=== PATIENT | female | born 1995 | race Two or more races ===

== ENCOUNTER 2017-11-19 10:16 | Inpatient (IN) | payer OTHER ==
[2017-11-19] MEDS ORDERED: Haloperidol TAB* 5 MG PO ONE (10:51)
[2017-11-19] MEDS ORDERED: diPHENhydraMINE PO* 50 MG PO ONE (10:51)
--- NOTE | 2017-11-19 10:58 | ED ---
Psychiatric Complaint - HPI Summary HPI Summary: Pt [address] [facility] police for reports of "not acting right" over at [employer]. Here w/ agitation, flight of ideas and appears to be looking around the room when talking as though she 's distracted. Reports she is hearing voices but they are not telling her to hurt herself or anyone else. Report she had sex for the first time last night with her boyfriend, Jun. Later refers to him as her . Reports this was consensual but was more painful that she thought it would be. States he was very sweet and she's spoken to him since - he's at home working now. When asked if I could have his phone number, she reports "it's right here" and points to her wrist band. 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 From a country outside of [facility] near [facility]. No family members are here other than her partner. Reports she's on her period now and has some lower ab cramping as a result. She is not clear about past medical or mental health hx - not clear if she's taken anything today or recently. Making comments about "[employer] - if you play it backwards, it 's different" and touching lights on the wall while speaking - appears distracted. Lunging at me at times but does not appear malicious. Pressured speech at times and repeats herself occasionally. Requesting her shoes back nad wants to go home. Asks if she can take her clothes off and reaches for her pants but advised she does not need to disrobe this moment - pulls belt off anyway but does not remove pants. Returns to pacing around the room. Belt removed from room and at charge nurse desk. - History Of Current Complaint Time Seen by Provider: 11/19/17 10:37 Hx Obtained From: Patient - Allergies/Home Medications Allergies/Adverse Reactions: Allergies Allergy/AdvReac Type Severity Reaction Status Date / Time No Known Allergies Allergy Verified 11/19/17 11:13 Home Medications: Home Medications Unobtainable [Unobtainable] 11/19/17 [History Confirmed 11/19/17] PMH/Surg Hx/FS Hx/Imm Hx Previously Healthy: Yes - pt reports she is healthy, but unreliable source given current psychosis - Immunization History Immunizations Up to Date: Unable to Obtain/Confirm Infectious Disease History: Unable to Obtain/Confirm - Family History Known Family History: Positive: Unknown - pt unable to provide at this time - Social History Occupation: Student - "[employer]" Lives: With Family - "I live with my Jun" Alcohol Use: None Alcohol Amount: pt unable to provide at this time Substance Use Type: Reports: None Substance Use Comment - Amount & Last Used: denies currently, but pt unable to provide reliable info at this time Smoking Status (MU): Unknown if Ever Smoked Review of Systems - ROS Summary Review of Systems Summary: Level 5 caveat - psychosis Gastrointestinal: Other - "period cramps" - tolerable Genitourinary: Other - reports she had 1st intercourse last night - no physical complaints -see HPI Psychological: Other - psychotic All Other Systems Reviewed And Are Negative: Yes Physical Exam Triage Information Reviewed: Yes Vital Signs Reviewed: Yes Appearance: Positive: Well-Appearing - physically appears well - mentally, unstable, Well-Nourished Skin: Positive: Warm, Skin Color Reflects Adequate Perfusion, Dry Head/Face: Positive: Normal Head/Face Inspection Eyes: Positive: EOMI, Conjunctiva Clear ENT: Positive: Hearing grossly normal, Pharynx normal - mucosa moist Neck: Positive: Supple - no gross thryomegaly Respiratory/Lung Sounds: Positive: Breath Sounds Present. Negative: Stridor Cardiovascular: Positive: Normal Musculoskeletal: Positive: Normal, Strength/ROM Intact Neurological: Positive: Normal, Sensory/Motor Intact, CN Intact II-III. Negative: Alert, Oriented to Person Place, Time Psychiatric: Positive: Other - manic - energetic, can't sit - pacing around room - appears to be visually distracted during conversation; flight of ideas - tangential thinking - attempts to hug multiple staff members - does not appear malicious w/ her intentions Diagnostics - Laboratory Result Diagrams: 11/19/17 11:20 11/19/17 11:20 Lab Statement: Any lab studies that have been ordered have been reviewed, and results considered in the medical decision making process. Course/Dx - Course Course Of Treatment: Pt presents w/ psychotic features. Initially offered haldol PO and benadryl PO as she was cooperative. She was becoming increasingly agitated however and anxious despite PO meds so ativan IM was offered to help her relax. She is pending lab draw and urinalysis/tox screen. Update: labs complete - still pending tox screen. Pt was taken to [facility] and evaluated. No communication about care from there but appears she was admitted to [facility] here in [facility]. - Differential Dx/Clinical Impression Provider Diagnosis: Acute psychosis Discharge - Discharge Plan Condition: Guarded Disposition: ADMITT[facility] TO [facility]
[2017-11-19] MEDS ORDERED: LORazepam INJ* 2 MG/ML 1 ML VIAL IM ONE (11:28)
[2017-11-19 11:40] LABS: ABS Basophils 0 10^3/ul (0-0.2); ABS Eosinophils 0 10^3/ul (0-0.6); ABS Lymphocytes 1.5 10^3/ul (1.0-4.8); ABS Monocytes 0.8 10^3/ul (0-0.8); ABS Neutrophils 5.5 10^3/ul (1.5-7.7); ABS Nucleated RBC 0 10^3/ul; Eosinophil % 0.3 % (0-6); Hematocrit 38 % (35-47); Lymphocyte % 19.2 % (25-47); Mean Corpuscular HGB Conc 34 g/dl (31-36); Mean Corpuscular Hemoglobin 32 pg (27-31); Mean Corpuscular Volume 93 fL (80-97); Mean Platelet Volume 8 um3 (7.4-10.4); Nucleated Red Blood Cells % 0.1; Platelet Count 324 10^3/ul (150-450); Red Blood Count 4.09 10^6/ul (4.0-5.4); Red Cell Distribution Width 13 % (10.5-15); White Blood Count 7.9 10^3/ul (3.5-10.8)
[2017-11-19 11:52] LABS: EGFR Non-African American 90.1 (>60)
[2017-11-19] MEDS ORDERED: Al Hydrox/Mg Hydrox/Simet LIQ* 30 ML UDC PO PRN (15:03)
[2017-11-19] MEDS ORDERED: Acetaminophen TAB* 325 MG PO PRN (15:03)
[2017-11-19] MEDS ORDERED: Haloperidol TAB* 1 MG PO PRN (15:04)
[2017-11-19] MEDS ORDERED: LORazepam TAB(*) 1 MG PO PRN (15:04)
[2017-11-20 17:07] LABS: Urine Appearance Clear; Urine Blood Negative (Negative); Urine Color Yellow; Urine Ketones Negative (Negative); Urine Protein Negative (Negative); Urine Specific Gravity 1.014 (1.010-1.030); Urine Urobilinogen Negative (Negative)
--- NOTE | 2017-11-20 19:50 | HP ---
HISTORY AND PHYSICAL: DATE OF ADMISSION: 11/19/17 ATTENDING PROVIDER: Georgi Rico MD * (DICTATED BY OSTIO AGUILAR NP) JUSTIFICATION FOR ADMISSION: The patient presented to the emergency department via EMS in . The patient was previously at [facility] and reported to have psychotic features. She merits hospitalization for immediate safety, evaluation, and stabilization. 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 She lives with friends in an apartment off campus. She returned to [place] recently after spending the break in [place] with her parents. According to the mental health evaluation , the patient was brought to [facility] when her roommates/friends were concerned about her behavior. While in the emergency department, the patient was demonstrating mood lability, racing thoughts, agitation, and flight of ideas. She was disorganized, tangential, and required sedative medications. Staff was unable to obtain urine specimen due to the patient being incontinent on the bed and then on the floor 2 separate occasions. This morning the patient reports that she is concerned about starting classes and wants to be able to do so this week. She states that she has a history of mild anxiety. She states that in elementary school it was "crippling" but that has improved since starting college and she attributes this to being away from her parents. She states that she primarily brandon with anxiety by smoking marijuana and goes on to question herself in regards to being addicted to marijuana. She states that she uses "a little bit." She later admits to smoking at least twice daily including when she wakes. The patient reports she did not smoke while at home in [facility] over the break because she was around her parents. The patient states that she often hears "buzzing" in her head and goes on to describe internal commentary. The patient denies anhedonia. She denies suicidal ideation. She states that she is motivated and driven when it comes to writing in her school work. She states that she is "constantly telling herself things are wrong" and tends to repeat her work over and over. When we start discussing her classes, she is tearful and states that she is concerned about being accepted to a study abroad program in [place]. She is not sure if her GPA will be adequate. The patient states she started seeing a counsellor last fall and sees a private one in town by the name of Dr. Zahira Espinosa. She states that she was prompted to do so because her best friend started seeing a counsellor and appreciated the help her friend was getting. The patient states she primarily went to "talk to someone." She goes on to describe frustration with not being in a relationship. She states that she is spending time with a man named Jun and wants to ask if they are dating, but is afraid of chasing him away. The patient denies self-injurious behavior. She denies a history of suicide attempts. She denies history of violence or HI. She states that in middle school she "tried to be bulimic and anorexic, but liked food too much." The patient denies obsessions or rituals. She denies delusions or depersonalization. PAST PSYCHIATRIC HISTORY: The patient started going to a counsellor. I am not sure who this person is, so this will have to be explored more. According to the mental health evaluation, the patient saw a counsellor at [facility] once before the winter and saw a therapist yesterday before being sent to the emergency department. The patient denies previous inpatient treatment. She was in the emergency department in June 2016 for alcohol intoxication. Otherwise, there are no other mental health evaluations. TRAUMA ABUSE HISTORY: The patient denies. PAST MEDICAL HISTORY: The patient denies. PAST SURGICAL HISTORY: No surgical history. CURRENT MEDICATIONS: The patient denies current medications. ALLERGIES: No known drug allergies. Height 5 feet and 6 inches, weight 150 pounds. She states that she has been exercising more and losing weight in a healthy manner by monitoring diet and increasing exercise. LAST MENSTRUAL PERIOD: 11/13/17. PRIMARY CARE PROVIDER: [facility]. She states she has been sexually active and using condoms. The patient denies need for test for STI's as she was tested and not been sexually active since that time. FAMILY PSYCHIATRIC HISTORY: The patient denies. She states that specifically her father is not agreeable with mental health treatment or diagnosis. SOCIAL HISTORY: The patient is the only child by parents. Her mother is Maltese. Her father is from [place]. As stated above, she is a [employer] sophomore returning from winter break. She states that she studies architecture. 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 She likes to exercise, run . She reports drinking alcohol occasionally, 3 to 4 drinks at a time. She does not like being intoxicated, does not like the feeling of being out of control. She reports smoking cigarettes rarely. She denies need for nicotine replacement. The patient is a daily marijuana user while away from home. PRIMARY CARE PROVIDER: At [facility]. REVIEW OF SYSTEMS: Constitutional: Negative. No fevers, chills, or fatigue. ENT: Negative. Cardiovascular: Negative. Denies chest pain or palpitations. Respiratory: Negative. Denies shortness of breath or cough. Genitourinary: Negative. Musculoskeletal: Negative. Neurological: Negative. PHYSICAL EXAMINATION GENERAL: The patient is well appearing and well nourished. VITAL SIGNS: T 98.3, P 67, respirations 18, O2 saturation 100%, BP 118/74. HEENT: Head and Face: Normal head and face inspection. Eyes: Positive EOMI. PERRL. Conjunctivae clear. NECK: Supple. Full ROM. Trachea midline. RESPIRATORY: Lung sounds clear to auscultation. Breath sounds present. CARDIOVASCULAR: Heart RRR. Pulses are symmetrical in both upper and lower extremities. MUSCULOSKELETAL: Normal strength. ROM intact. NEUROLOGIC: Normal sensory, motor intact. Alert and oriented x3. Normal gait. SKIN: Warm and dry. Color reflects adequate perfusion. MENTAL STATUS EXAM: The patient is dressed in her own clothing. Her hair is up in a messy bun. She appears stated age. She sits with slouched posture facing interviewer. There is no psychomotor abnormal activity present. She is cooperative and answers questions fully. She is alert and oriented x3. Her concentration is fair. Memory is 3/3. Her mood is "great," exhibits full range of affect, congruent with topic. Speech rapid at times, otherwise normal rhythm and volume. Thought process is circumstantial in regards to relationship with a friend named Jun. Content of thought: Negative SI, HI, or . Questionable AH. Her insight is poor. Her judgment is poor. Her fund of knowledge is excellent. LABORATORY DATA: Laboratory data obtained in the emergency department. CBC was grossly unremarkable. CMP within normal limits. TSH 1.35 and hCG is negative. Toxicology negative for salicylates, acetaminophen, or alcohol. I have ordered another urinalysis and urine drug screen and awaiting the collection of urine sample. DIAGNOSES: 1. Substance-induced psychotic disorder. 2. Rule out mood disorder. 3. Cannabis use disorder. ASSESSMENT: This is the first psychiatric hospitalization for a 22-year-old Maltese- female. 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 She presented to [facility] yesterday with flight of ideas, agitation, and internal stimuli. She required sedative medications while in the emergency department. She reports having had started counseling in the past fall with someone named Dr. Zahira Espinosa, apparently a private therapist here in [place]. PLAN: Admit to adult behavioral services unit on 9.39 status. Code status is full. Placed on 15 minutes check for safety. The patient is encouraged to participate in supportive milieu, individual sessions with staff and psychoeducational groups. We will obtain an MMPI for diagnostic clarification. Psychiatric medications are available on a p.r.n. basis. We will monitor for mood and thought content. Estimated length of stay is 1 week. Discharge plan will include family involvement and outpatient providers per the patient consent. OSITO AGUILAR NP [id number]/CPS #: [id number] LOULOU
--- NOTE | 2017-11-21 11:02 | PN ---
Subjective - Subjective Date of Service: 11/21/17 Service Type: 70970 Hosp care 15 min low complexity Subjective: Katarzyna is seen in coverage for NPP, Bonita Tapia. The patient feels more like herself today and is denying psychotic symptoms. Staff notes that she is becoming more active on the unit. Patient states that she spoke with her mother yesterday in [facility] and that it went well. She appears strongly motivated to discontinue use of cannabis. She denies SI or HI. Objective - Appearance Appearance: Well Developed/Nourished Dysmorphic Features: No Hygiene: Normal Grooming: Well Kept - Behavior Psychomotor Activities: Normal Exhibits Abnormal Movement: No - Attitude and Relatedness Attitude and Relatedness: Cooperative Eye Contact: Good - Speech Quality: Unpressured Latencies: Normal Quantity: Appropriate - Mood Patient's Decription of Mood: "Good" - Affect Observed Affect: Fair Affect Consistent with: Euthymia - Thought Process Patient's Thought Process: Coherent Thought Content: No Passive Wish, No Suicidal Planning, No Homicidal Ideation, No Paranoid Ideation - Sensorium Experiencing Hallucinations: No, Sensorium is Clear Type of Hallucinations: Visual: No, Auditory: No, Command: No - Level of Consciousness Level of Consciousness: Alert Orientation: Yes Intact, Yes Orientated to Time, Yes Orientated to Place, Yes Orientated to Person - Impulse Control Impulse Control: Tenuous - Insight and Judgement Insight and Judgement: Fair - Group Participation Particating in Group Activities: Yes - Medication Management Medication Management Adherence: Yes Assessment - Assessment Merits Inpatient Hospitalization: Consolidate Improvements, Pending Safe DC Plan Inpatient DSM-IV Dx: Cannabis Induced Psychotic DO Clinical Impression: 22 y.o. 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 Likely substance- induced as she has been smoking much MJ since returning to [employer] after break. Plan - Plan Treatment Plan: Name: KATARZYNA MAYFIELD Birthdate: 1995 [id number] Conservative management with milieu therapy and prn antipsychotic administration for breakthrough psychotic symptoms. Patient contemplative to discontinue cannabis abuse. Continue inpatient treatment. Continued Medication Management: Consider Medication Medications: Current Medications Acetaminophen (Tylenol Tab*) 650 mg PO Q4H PRN PRN Reason: for pain; or Temp >101 F Al Hydrox/Mg Hydrox/Simethicone (Maalox Plus*) 30 ml PO Q4H PRN PRN Reason: INDIGESTION Haloperidol (Haldol Tab*) 1 mg PO Q6H PRN PRN Reason: AGITATION Lorazepam (Ativan Tab(*)) 1 mg PO Q6H PRN PRN Reason: ANXIETY Last Admin: 11/21/17 09:26 Dose: 1 mg - Discharge Plan Discharge Plan: Inpatient Hospitalization
--- NOTE | 2017-11-21 11:36 | PN ---
MHU: Group Therapy Note - Service Type Service Type: [id number] Group Psychotherapy - Cognitive Behavioral Group Therapy ( CBT):Patient was attentive and participatory in CBT programming this morning, and remained in good behavioral control. Patient expressed positive insights regarding relevant treatment interventions and goals.
--- NOTE | 2017-11-22 16:27 | PN ---
Subjective - Subjective Service Type: 84342 Hosp care 25 min moderate complexity Subjective: Patient reports "I'm doing really well." She attributes her recent mental state to being inundated by internet ads and social media. She states she has been "studying too much" about virtual reality and simulation. She states she is identifying changes she wants to make to improve her life. She states she and her roommates have talked about refraining from marijuana use. She states she has engaged in casual sex and realized that she is not able to do this and separate it from emotions. She plans to meet with academic advisors to make plans for studying, jobs and internships. She gives contract technical writer consent to speak with her mother and asks that I refrain from discussing marijuana use. Desktop Manager encourages her to discuss honestly with her mother when she is ready to do so. Desktop Manager phones patient's mother, Sushma at [phone], and given update on patient's presentation and improvement. Sushma states she was alarmed by patient' s rapid speech, distractibility and disorganization on the first day of admission. She states they spoke last night and had a pleasant and lengthy conversation. She states that Katarzyna was organized and in control during this conversation. Desktop Manager encouraged mother to discuss events leading to admission with her daughter. Encouraged Sushma to call again with further questions or concerns. Objective - Appearance Appearance: Well Developed/Nourished Dysmorphic Features: No Hygiene: Normal Grooming: Well Kept - Behavior Psychomotor Activities: Normal Exhibits Abnormal Movement: No - Attitude and Relatedness Attitude and Relatedness: Cooperative Eye Contact: Good - Speech Quality: Unpressured Latencies: Normal Quantity: Appropriate - Mood Patient's Decription of Mood: "really well" - Affect Observed Affect: Good Affect Consistent with: Euthymia - Thought Process Patient's Thought Process: Coherent, Goal Directed Thought Content: No Passive Wish, No Suicidal Planning, No Homicidal Ideation, No Paranoid Ideation - Sensorium Experiencing Hallucinations: No, Sensorium is Clear Type of Hallucinations: Visual: No, Auditory: No, Command: No - Level of Consciousness Level of Consciousness: Alert Orientation: Yes Intact, Yes Orientated to Time, Yes Orientated to Place, Yes Orientated to Person - Impulse Control Impulse Control: Intact - Insight and Judgement Insight and Judgement: Good - Group Participation Particating in Group Activities: Yes - Medication Management Medication Management Adherence: Yes Assessment - Assessment Merits Inpatient Hospitalization: For Immediate Safety, For Stabilization, Consolidate Improvements, For Discharge Planning Inpatient DSM-IV Dx: Cannabis Induced Psychotic DO Plan - Plan Treatment Plan: Name: KATARZYNA MAYFIELD Birthdate: 1995 [id number] continue acute intensive psychiatric treatment. awaiting MMPI results. may decrease to q30min observation and allow staff pass and computer use. tentative discharge on 11/23/17. Continued Medication Management: Consider Medication Medications: Current Medications Acetaminophen (Tylenol Tab*) 650 mg PO Q4H PRN PRN Reason: for pain; or Temp >101 F Al Hydrox/Mg Hydrox/Simethicone (Maalox Plus*) 30 ml PO Q4H PRN PRN Reason: INDIGESTION Haloperidol (Haldol Tab*) 1 mg PO Q6H PRN PRN Reason: AGITATION Lorazepam (Ativan Tab(*)) 1 mg PO Q6H PRN PRN Reason: ANXIETY Last Admin: 11/21/17 09:26 Dose: 1 mg - Discharge Plan Discharge Plan: Outpatient Follow Up Outpatient Program: Counseling[facility] Services at [place]
[2017-11-23 08:30] VITALS: BP 100/56
--- NOTE | 2017-11-23 11:58 | PN ---
MHU: Group Therapy Note - Service Type Service Type: [id number] Group Psychotherapy - Cognitive Behavioral Group Therapy ( CBT):Patient was attentive and participatory in CBT programming this morning, and remained in good behavioral control. Patient expressed positive insights regarding relevant treatment interventions and goals.
--- NOTE | 2017-11-23 19:34 | CONS ---
PSYCHOLOGICAL REPORT: DATE OF CONSULT: 11/23/17 REASON FOR REFERRAL: Mel was referred for psychological testing secondary to concerns regarding psychotic presentation and/or possible bipolar disturbance. 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 She was brought to the emergency department by friends of her's , who were concerned about recent behavior and conduct. Apparently, Mel had experienced decompensation after traveling from [facility] to be with her family during the break. She describes period of insomnia and not eating properly during the travel time and then exacerbating her difficulties with recurrent marijuana use. While she was in the emergency department, Mle demonstrated difficulties with disorganization in thought and behavior, exhibiting racing thoughts, agitation, flight of ideas, and mood swings. She was disorganized to the point of having been incontinent on the bed and then on the floor on 2 separate occasions. Mel describes rather strict upbringing while spending her high school years in [place] [facility] and then experiencing positive reaction to her move to [place]. She described how she was able to make her own decisions regarding enjoying life without such restrictions that were in place especially for girls in [facility]. She subsequently describes some concerns regarding promiscuity and drug use stating that she was "making up for lost time." Currently, she impresses as having positive insights regarding her need to moderate her behaviors both in terms of abstinence from marijuana in the near term as well as in having better self-esteem and more stable self-image in regards to decisions regarding partners. On behavioral observations, Mel was an attentive and active participant in programming while here. Her initial presentation cleared quite markedly with proper sleep hygiene and engagement in therapeutic activities. It was reassuring that her difficulties subsided in such a timely fashion without the use of psychotropic medications. As such, it impresses that her symptomatology was driven primarily by a period of insomnia and travel fatigue, which was then exacerbated by her recurrent marijuana use. As she has gotten good rest while here and of course abstained from smoking pot, her thought processes have shown rapid stabilization. She is able to discuss her relevant history in a thoughtful and coherent fashion demonstrating organization in thought and relevance in topic. TEST RESULTS: Mel provides a valid response set on this administration of the [place] Multiphasic Personality Inventory - 2. She elevates the paranoia , schizophrenia, and most significantly the hypomania scales (T=85 to 87 on all 3 with the highest being hypomania). She does not elevate the depression scale , which can be a common finding with persons who are experiencing affective disturbance. IMPRESSIONS AND RECOMMENDATIONS: Ongoing treatments should continue to rule out possible emergent bipolar 1 disorder as Mel is demographic for a first onset of psychosis. However, as mentioned, her quick recovery and stabilization is indicative of affective disturbance secondary to substance abuse. She impresses as having good insight regarding her need to engage in followup treatment post discharge and has been cooperative and insightful in discussion. She is an excellent candidate to benefit from insight-oriented psychotherapies and is a very personable young woman. [id number]/[facility] #: [id number] LOULOU
--- NOTE | 2017-11-26 10:53 | DS ---
CC: Janee Mendez; [facility] * DATE OF ADMISSION: 11/19/2017. DATE OF DISCHARGE: 11/23/2017. SUPERVISING PSYCHIATRIST: Dr. Georgi Rico * (dictated by SHAKIR Sheikh ). DISCHARGE DIAGNOSES: Substance-induced psychotic disorder, cannabis use disorder. CONDITION AT THE TIME OF DISCHARGE: Improved. The patient is euthymic and organized. She is pleasant and cooperative with interview. She reports benefiting from hospitalization and is motivated to continue refraining from marijuana use, as well as continue with outpatient therapy already established. She denies suicidal ideation and she is organized and in behavioral control. The patient requests to be discharged in order to return home and continue with her academic responsibilities. MENTAL STATUS EXAM: The patient is dressed in her own clothing. She is wearing eyeglasses and her ADL's are adequate. She appears stated age. She sits with good posture and is interactive with staff and peers. There is no psychomotor abnormality present. She is alert and oriented times three. Her eye contact is good. Her concentration is good. Her memory is 3/3. She reports her mood is "great" and has congruent affect. Speech is normal rate, rhythm and volume. Thought process is logical and goal directed. Content of thought: Negative SI, HI, or ; negative A/V hallucinations. Her insight is good. Her judgment is good. Her fund of knowledge is excellent. DISCHARGE INSTRUCTIONS GIVEN TO THE PATIENT: A. Medications: None. B. Diet: Regular. C. Activities: Ambulation as tolerated. Tobacco cessation is not applicable. There are no labs or diagnostic studies pending at the time of discharge. D. Follow-up care: The patient will follow-up with her primary therapist, psychologist Janee Mendez on November 27 at 10:00 a.m. She will follow- up with primary care, [facility], as needed. E. Substance abuse follow-up: The patient declines offer for substance use referrals and is motivated to abstain from cannabis use. HOSPITAL COURSE - PART A: Reason for admission: The patient presented to the emergency department via EMS under 9.45. She had been at the [facility] with psychotic symptoms after presenting there with her friends. She was evaluated in the emergency department and noted to be medically stable. While in the emergency department, the patient was demonstrating mood lability, racing thoughts, agitated and flight of ideas. She was disorganized, tangential , and required sedative medications. She was admitted to the Adult Behavioral Services Unit on 9.39 status. HOSPITAL COURSE - PART B: Psychiatric treatment rendered: On the day of admission, the patient was cooperative with interviews by various staff members. The patient had just returned to [place] for spring at [facility] [facility] She had been in her home in [facility] for the past month. Upon arrival to [place], she had not been eating or sleeping well and had been engaging in excessive daily marijuana use. Her friends and roommates were concerned about her behaviors and took her to [facility]. She was evaluated and noted to be disorganized and sent to the emergency room. During the course of admission, the patient identified goals for herself as she continued to become more organized. She reported willingness to refrain from cannabis use. She states that she had started to go to a private therapist in [facility] last semester. The patient states that she has been engaging in causal sex with a male friend and has identified that this is not healthy for her. She is pushing herself not only to do well academically, but to find a mate while in college. She was tearful when discussing hopes to study abroad in [place] this year and is not sure if her GPA will be adequate. The patient denied a history of SI, SIB, or violence. Collateral obtained from her friends and from her parents denotes that this was a drastic change in the patient's behavior. The patient requested that when this chief underwriter talked to her mother, do not mention marijuana use. This chief underwriter encouraged the patient and her mother separately to talk to each other about events leading to admission. The patient was fully participatory on the unit and became more organized rapidly. Due to this and no need for psychiatric medications, it is likely that a lot of her symptoms were substance-induced. The patient continues to be highly motivated and was told that bipolar disorder is a rule out diagnosis at this time. The patient was decreased to 30 minute observation and allowed computer use and staff pass. She was safe on all checks. This wrist spoke with her best friend and roommate who advocated also for her release, and she and her friends identified that they would be home with her over the weekend. The patient expressed concern for increased decompensation if admission continues. Due to the obligation to treat in the least restrictive setting, discharge was agreed upon by treatment team. The patient was given written discharge instructions by nursing staff. She was instructed how to contact this unit with any questions or concerns after discharge. She agreed to follow-up with her therapist, Janee Mendez. OSITO AGUILAR, SUZIE [id number]/[facility] #: [id number] LOULOU
== END 2017-11-23 16:11 | disposition home or self-care (01) | DRG 897 ==
LOC: ED 10:16 → BSU 17:47
PROVIDERS: ADMIT Psychiatry & Neurology Psychiatry; ATTEND Psychiatry & Neurology Psychiatry
PROC: GZHZZZZ Group Psychotherapy (ICD-10-PCS; principal; 2017-11-21)
DX: F12.959 Cannabis use, unspecified with psychotic disorder, unspecified (principal); Z72.0 Tobacco use; Z72.89 Other problems related to lifestyle
CPT/HCPCS: 36415; 80053; 80307; 80320; 80329; 81003; 84443; 84702; 85025; 90853; 99222; 99231; 99232; 99238; 99284; A9270-GY; G0480; J2060